=== PATIENT | male | born 1975 | race American Indian/Alaskan Native ===

== ENCOUNTER 2018-05-28 00:48 | Emergency (ER) | payer OTHER ==
[2018-05-28 00:58] VITALS: RESP 20
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
[2018-05-28 06:32] VITALS: BP 160/91; PULSE 63; TEMP 97.7
[2018-05-28 06:36] VITALS: O2SAT 99
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
== END 2018-05-28 07:05 | disposition home or self-care (01) ==
LOC: C.ER 00:48
DX: S01.112A Laceration without foreign body of left eyelid and periocular area, initial encounter (principal); S02.2XXA Fracture of nasal bones, initial encounter for closed fracture; S02.40FA Zygomatic fracture, left side, initial encounter for closed fracture; S02.32XA Fracture of orbital floor, left side, initial encounter for closed fracture; W22.8XXA Striking against or struck by other objects, initial encounter